=== PATIENT | male | born 1955 | race African-American/Black ===

== ENCOUNTER 2018-06-21 20:25 | Inpatient (IN) ==
[2018-06-21] MEDS ORDERED: MORPHINE 4 MG/1 ML VIAL IV PRN (23:23)
[2018-06-21] MEDS ORDERED: traZODone 50 MG TABLET PO PRN (23:23)
[2018-06-21] MEDS ORDERED: DOCUSATE SODIUM 100 MG CAPSULE PO PRN (23:23)
[2018-06-21] MEDS ORDERED: BISACODYL 5 MG TABLET PO PRN (23:23)
[2018-06-21] MEDS ORDERED: ACETAMINOPHEN 325 MG TABLET PO PRN (23:23)
[2018-06-21] MEDS ORDERED: ONDANSETRON 4 MG/2 ML VIAL IV PRN (23:23)
[2018-06-21] MEDS ORDERED: GLUCAGON 1 MG VIAL IM PRN (23:30)
[2018-06-21] MEDS ORDERED: DEXTROSE 50% 25 GM/50 ML VIAL IV PRN (23:30)
[2018-06-22 00:26] LABS: Basophils % 0.5 % (0.0-0.8); Eosinophils # 0.3 10*3/uL (0.0-0.87); Eosinophils % 5.7 % (0.00-10.9); Hematocrit 32.3 VOL% (42.0-52.0); Hemoglobin 10.6 GM/DL (14.0-18.0); Immature Granulocytes % 0.3 %; Immature Granulocytes Absolute 0.02 #; Lymphocytes # 1.3 10*3/uL (1.4-4.0); Lymphocytes % 22.5 % (21.2-54.2); Mean Corpuscular HGB Conc 32.8 GM/DL (32-36); Mean Corpuscular Hemoglobin 27 PG (27-34); Mean Corpuscular Volume 82.6 FL (87-102); Mean Platelet Volume 10.9 FL (9.6-12.0); Monocytes # 0.7 10*3/uL (0.11-0.8); Monocytes % 11.6 % (1.7-12.7); Neutrophils # 3.5 10*3/uL (1.4-7.4); Neutrophils % 59.4 % (38.7-73.9); Platelet Count 194 T/CUMM (130-400); Red Blood Count 3.91 MC/CUMM (3.8-5.5); Red Cell Distribution Width 15.3 % (9.3-17.3)
[2018-06-22 00:46] LABS: Albumin 3.5 G/DL (3.4-5.0); Bilirubin,Total 0.4 MG/DL (0.2-1.0); Calcium 8.9 MG/DL (8.5-10.1); Osmolality,Calculated 298.1 MOS/KG (273-304); Potassium 3.7 MMOL/L (3.5-5.1); Total Protein 7.2 G/DL (6.4-8.3)
[2018-06-22 00:53] LABS: Thyroid Stimulating Hormone 0.139 uIU/ml (0.358-3.74)
[2018-06-22] MEDS ORDERED: HEPARIN 5,000 UNIT/1 ML VIAL IV ONE (01:00)
[2018-06-22 01:10] LABS: Apearance,Urine CLEAR (Clear); Bilirubin,Urine Negative (Negative); Blood, Urine Negative (Negative); Glucose,Urine (UA) Negative (Negative); Hyaline Casts,Urine 3 /LPF (0-3); Ketones,Urine Negative (Negative); Mucus,Urine Occasional /LPF (Occasional); Nitrite,Urine Negative (Negative); Protein,Urine Negative; Squamous Epithelial Cell,Urine Occasional /HPF (0-10); Urine Color Straw (Yellow); Urine Specific Gravity 1.005 (1.001-1.035); Urine Urobilinogen < 2.0 EU/DL (0.2-1.0); WBC,Urine <1 /HPF (0-6)
[2018-06-22] MEDS: HEPARIN DRIP 25,000 UNITS/500 ML PREMIX IV SCH ×2 (01:25→14:11)
[2018-06-22] MEDS: PRAVASTATIN 40 MG TABLET PO SCH ×2 (01:28→21:59)
[2018-06-22] MEDS: RANOLAZINE 500 MG TABLET PO SCH ×3 (01:28→21:59)
[2018-06-22 05:03] LABS: Risk Ratio 2.28; VLDL CHOLESTEROL 8.8 MG/DL
[2018-06-22] MEDS: PANTOPRAZOLE 40 MG TABLET PO SCH (09:27)
[2018-06-22] MEDS: INDOMETHACIN 25 MG CAPSULE PO SCH ×2 (09:28→14:11)
[2018-06-22] MEDS: VALSARTAN 160 MG TABLET PO SCH (09:28)
[2018-06-22] MEDS: ALLOPURINOL 100 MG TABLET PO SCH (09:28)
[2018-06-22] MEDS: ASPIRIN 325 MG TABLET PO SCH (09:28)
[2018-06-22] MEDS: CLOPIDOGREL 75 MG TABLET PO SCH (09:28)
[2018-06-22] MEDS: metOLazone 5 MG TABLET PO SCH (09:28)
[2018-06-22] MEDS: GLIMEPIRIDE 4 MG TABLET PO SCH (09:29)
[2018-06-22] MEDS: GABAPENTIN 300 MG CAPSULE PO SCH ×3 (09:29→21:59)
[2018-06-22] MEDS: INSULIN ASPART PROTAMINE/ASPART 70/30 100 UNIT/ML SUBCUT SCH ×2 (09:29→17:34)
[2018-06-22] MEDS: INSULIN LISPRO 100 UNIT/ML SUBCUT SCH ×4 (09:32→22:59)
[2018-06-22] MEDS: FUROSEMIDE 40 MG/4 ML VIAL IV SCH ×2 (09:32→17:35)
[2018-06-22] MEDS: CARVEDILOL 6.25 MG TABLET PO SCH (21:59)
[2018-06-22] MEDS ORDERED: DILTIAZEM 100 MG VIAL.ADD IV ONE (22:35)
[2018-06-22] MEDS ORDERED: DILTIAZEM 50 MG/10 ML VIAL IV ONE (22:36)
[2018-06-22] MEDS ORDERED: DILTIAZEM 25 MG/5 ML VIAL IV ONE (22:37)
[2018-06-22] MEDS: DILTIAZEM INJ 100 MG in SODIUM CHLORIDE 0.9% 100 ML IV SCH (22:44)
[2018-06-23 04:41] LABS: Calcium 8.7 MG/DL (8.5-10.1); Osmolality,Calculated 294.4 MOS/KG (273-304); Potassium 3.6 MMOL/L (3.5-5.1)
[2018-06-23] MEDS: DILTIAZEM INJ 100 MG in SODIUM CHLORIDE 0.9% 100 ML IV SCH (05:05)
[2018-06-23] MEDS: INSULIN LISPRO 100 UNIT/ML SUBCUT SCH ×4 (09:06→20:37)
[2018-06-23] MEDS: INSULIN ASPART PROTAMINE/ASPART 70/30 100 UNIT/ML SUBCUT SCH ×2 (09:08→16:34)
[2018-06-23] MEDS: metOLazone 5 MG TABLET PO SCH (09:10)
[2018-06-23] MEDS: RANOLAZINE 500 MG TABLET PO SCH ×2 (09:10→20:36)
[2018-06-23] MEDS: CARVEDILOL 6.25 MG TABLET PO SCH ×2 (09:10→20:36)
[2018-06-23] MEDS: VALSARTAN 160 MG TABLET PO SCH (09:10)
[2018-06-23] MEDS: PANTOPRAZOLE 40 MG TABLET PO SCH (09:11)
[2018-06-23] MEDS: CLOPIDOGREL 75 MG TABLET PO SCH (09:11)
[2018-06-23] MEDS: GABAPENTIN 300 MG CAPSULE PO SCH ×3 (09:11→20:36)
[2018-06-23] MEDS: GLIMEPIRIDE 4 MG TABLET PO SCH (09:11)
[2018-06-23] MEDS: ASPIRIN 325 MG TABLET PO SCH (09:11)
[2018-06-23] MEDS: ALLOPURINOL 100 MG TABLET PO SCH (09:11)
[2018-06-23] MEDS: FUROSEMIDE 40 MG/4 ML VIAL IV SCH ×2 (09:12→16:35)
[2018-06-23] MEDS ORDERED: metOLazone 5 MG TABLET PO SCH (09:36)
[2018-06-23] MEDS: COENZYME Q10 100 MG CAPSULE PO SCH (12:46)
[2018-06-23] MEDS: PRAVASTATIN 40 MG TABLET PO SCH (20:36)
[2018-06-24] MEDS: DILTIAZEM INJ 100 MG in SODIUM CHLORIDE 0.9% 100 ML IV SCH (00:07)
[2018-06-24 04:55] LABS: Basophils % 0.5 % (0.0-0.8); Eosinophils # 0.4 10*3/uL (0.0-0.87); Eosinophils % 5.5 % (0.00-10.9); Hematocrit 34.4 VOL% (42.0-52.0); Hemoglobin 11.6 GM/DL (14.0-18.0); Immature Granulocytes % 0.4 %; Immature Granulocytes Absolute 0.03 #; Lymphocytes # 1.1 10*3/uL (1.4-4.0); Lymphocytes % 14.4 % (21.2-54.2); Mean Corpuscular HGB Conc 33.7 GM/DL (32-36); Mean Corpuscular Hemoglobin 27 PG (27-34); Mean Corpuscular Volume 80.8 FL (87-102); Mean Platelet Volume 11.1 FL (9.6-12.0); Monocytes % 12.5 % (1.7-12.7); Neutrophils # 5.1 10*3/uL (1.4-7.4); Neutrophils % 66.7 % (38.7-73.9); Platelet Count 215 T/CUMM (130-400); Red Blood Count 4.26 MC/CUMM (3.8-5.5); Red Cell Distribution Width 15.3 % (9.3-17.3); White Blood Count 7.6 T/CUMM (4-12)
[2018-06-24 05:41] LABS: Calcium 9.1 MG/DL (8.5-10.1); Osmolality,Calculated 293.5 MOS/KG (273-304); Potassium 3.7 MMOL/L (3.5-5.1)
[2018-06-24] MEDS: FUROSEMIDE 40 MG/4 ML VIAL IV SCH (09:28)
[2018-06-24] MEDS: GLIMEPIRIDE 4 MG TABLET PO SCH (09:35)
[2018-06-24] MEDS: VALSARTAN 160 MG TABLET PO SCH (09:35)
[2018-06-24] MEDS: INSULIN ASPART PROTAMINE/ASPART 70/30 100 UNIT/ML SUBCUT SCH ×2 (09:35→17:24)
[2018-06-24] MEDS: RANOLAZINE 500 MG TABLET PO SCH ×2 (09:36→21:06)
[2018-06-24] MEDS: COENZYME Q10 100 MG CAPSULE PO SCH (09:36)
[2018-06-24] MEDS: ASPIRIN 325 MG TABLET PO SCH (09:36)
[2018-06-24] MEDS: CLOPIDOGREL 75 MG TABLET PO SCH (09:36)
[2018-06-24] MEDS: GABAPENTIN 300 MG CAPSULE PO SCH ×3 (09:37→21:06)
[2018-06-24] MEDS: PANTOPRAZOLE 40 MG TABLET PO SCH (09:37)
[2018-06-24] MEDS: ALLOPURINOL 100 MG TABLET PO SCH (09:37)
[2018-06-24] MEDS: INSULIN LISPRO 100 UNIT/ML SUBCUT SCH ×4 (09:41→21:07)
[2018-06-24] MEDS ORDERED: MAGNESIUM SULF RIDER 4 GM in PREMIX 1 EACH IV PRN (12:32)
[2018-06-24] MEDS ORDERED: MAGNESIUM SULF RIDER 2 GM in PREMIX 1 EACH IV PRN (12:32)
[2018-06-24] MEDS ORDERED: cloNIDine 0.1 MG TABLET PO PRN (13:16)
[2018-06-24] MEDS: CARVEDILOL 6.25 MG TABLET PO SCH ×2 (14:55→21:07)
[2018-06-24] MEDS: PRAVASTATIN 40 MG TABLET PO SCH (21:06)
[2018-06-25] MEDS: DILTIAZEM INJ 100 MG in SODIUM CHLORIDE 0.9% 100 ML IV SCH (00:28)
[2018-06-25 03:46] LABS: Basophils % 0.5 % (0.0-0.8); Eosinophils # 0.5 10*3/uL (0.0-0.87); Hematocrit 33.8 VOL% (42.0-52.0); Hemoglobin 11.5 GM/DL (14.0-18.0); Immature Granulocytes % 0.4 %; Immature Granulocytes Absolute 0.02 #; Lymphocytes # 1.7 10*3/uL (1.4-4.0); Lymphocytes % 29.5 % (21.2-54.2); Mean Corpuscular Hemoglobin 27 PG (27-34); Mean Corpuscular Volume 80.1 FL (87-102); Monocytes # 0.8 10*3/uL (0.11-0.8); Monocytes % 14.5 % (1.7-12.7); Neutrophils # 2.6 10*3/uL (1.4-7.4); Neutrophils % 47.1 % (38.7-73.9); Platelet Count 242 T/CUMM (130-400); Red Blood Count 4.22 MC/CUMM (3.8-5.5); White Blood Count 5.6 T/CUMM (4-12)
[2018-06-25 04:20] LABS: Calcium 9.1 MG/DL (8.5-10.1); Osmolality,Calculated 290.4 MOS/KG (273-304); Potassium 3.5 MMOL/L (3.5-5.1)
[2018-06-25] MEDS: CLOPIDOGREL 75 MG TABLET PO SCH (08:28)
[2018-06-25] MEDS: COENZYME Q10 100 MG CAPSULE PO SCH (08:28)
[2018-06-25] MEDS: CARVEDILOL 6.25 MG TABLET PO SCH (08:29)
[2018-06-25] MEDS: PANTOPRAZOLE 40 MG TABLET PO SCH (08:29)
[2018-06-25] MEDS: GLIMEPIRIDE 4 MG TABLET PO SCH (08:29)
[2018-06-25] MEDS: GABAPENTIN 300 MG CAPSULE PO SCH ×2 (08:29→16:28)
[2018-06-25] MEDS: INSULIN LISPRO 100 UNIT/ML SUBCUT SCH ×2 (08:30→12:28)
[2018-06-25] MEDS: INSULIN ASPART PROTAMINE/ASPART 70/30 100 UNIT/ML SUBCUT SCH (08:30)
[2018-06-25] MEDS: ALLOPURINOL 100 MG TABLET PO SCH (08:32)
[2018-06-25 09:13] LABS: Osmolality,Calculated 291.8 MOS/KG (273-304); Potassium 3.9 MMOL/L (3.5-5.1)
[2018-06-25 12:01] VITALS: BP 131/70
[2018-06-25] MEDS: RANOLAZINE 500 MG TABLET PO SCH (12:06)
[2018-06-25] MEDS ORDERED: APIXABAN 2.5 MG TABLET PO SCH (21:00)
[2018-06-26] MEDS ORDERED: ASPIRIN EC 81 MG TABLET PO SCH (09:00)
== END 2018-06-25 16:30 | disposition home or self-care (01) | DRG 308 ==
LOC: N.TELES 22:39 → SUATTDRO 23:24
PROVIDERS: ADMIT Internal Medicine; ATTEND Internal Medicine